=== PATIENT | female | born 1940 | race Caucasian/White ===

== ENCOUNTER → 2021-07-06 | Outpatient (CLI) | payer MEDICARE, OTHER | LOC: EXRD 09:47 | DX: K76.89 Other specified diseases of liver (principal) | CPT/HCPCS: 76700 ==

== ENCOUNTER → 2021-09-24 | Outpatient (CLI) | payer MEDICARE, OTHER | LOC: US 12:53 | DX: N63.41 Unspecified lump in right breast, subareolar (principal) | CPT/HCPCS: 76641 ==